=== PATIENT | male | born 1990 | race Caucasian/White ===

== ENCOUNTER → 2020-10-17 07:04 | Outpatient (CLI) | payer OTHER, SELFPAY ==
--- NOTE | ~2020-10-17 | MR_ITS ---
EXAMINATION: MR shoulder RT wo con DATE: 10/17/2020 07:47 INDICATION: Injury of the right glenoid labrum presenting with right shoulder pain and limited range of motion. TECHNIQUE: Magnetic resonance imaging (MRI) of the right shoulder was performed without intravenous c ontrast. Sequences included axial PD-weighted FS FSE, coronal oblique PD-weighted FS FSE, coronal obl ique T2-weighted FS FSE, sagittal PD-weighted FS FSE, and sagittal T1-weighted SE. COMPARISON: None. FINDINGS: Coracoacromial arch: The acromion undersurface is curved in morphology (type II). The coracoacromial ligament is normal. A cromioclavicular joint is normal. Rotator cuff: Mild supraspinatus tendinopathy without discrete tear. The infraspinatus, teres minor and subscapular is tendons are normal. Normal rotator cuff muscle bulk and signal. Biceps tendon, glenoid labrum and glenohumeral cartilage: Long head of the biceps tendon is normal. Chondral labral delamination with tear extending into the b ase of the posterior superior glenoid labrum extending from the 10:00 to the 11:30 position. And jian ral cartilage is otherwise normal. Fluid: Physiologic amount of fluid in the glenohumeral joint and biceps tendon sheath. No loose osteochondra l bodies. No abnormally increased fluid in the subacromial/subdeltoid bursa to suggest bursitis. Bones: Small low signal intensity bone island at the humeral head. Normal marrow signal with no edema, fract ure or pathologic marrow replacing process. Mild cystic change at the greater tuberosity. IMPRESSION: 1. Chondro labral delamination and labral tear at the posterior superior labrum. 2. Mild supraspinatus tendinopathy without discrete tear. Reviewed, dictated and finalized at location A. SCRIPT UI DEVELOPER IMPRESSION: 1. Chondro labral delamination and labral tear at the posterior superior labrum . 2. Mild supraspinatus tendinopathy without discrete tear.
== END ==
PROVIDERS: PCP Family Medicine; Visit Provider Internal Medicine
DX: S49.91XA Unspecified injury of right shoulder and upper arm, initial encounter (principal); X58.XXXA Exposure to other specified factors, initial encounter
CPT/HCPCS: 73221